=== PATIENT | female | born 1950 | race Caucasian/White ===

== ENCOUNTER 2021-04-15 00:52 | Inpatient (IN) | payer MEDICARE, OTHER ==
[2021-04-15] MEDS ORDERED: Ondansetron PF 4 MG/2 ML Vial ONE ×3 (01:38→08:12)
[2021-04-15] MEDS ORDERED: Morphine 4 MG/ML VIAL ONE ×2 (01:38→08:11)
[2021-04-15] MEDS ORDERED: Diltiazem 125 MG/25 ML ONE (02:12)
[2021-04-15] MEDS ORDERED: Ondansetron PF 4 MG/2 ML Vial IVP PRN (05:51)
[2021-04-15] MEDS ORDERED: Acetaminophen 325 MG TAB PO PRN (05:51)
[2021-04-15 06:18] LABS: #Basophils 0.1 thou/uL (0.0-0.2); #Eosinphils 0.1 thou/uL (0.0-0.7); #Lymphocytes 1.3 thou/uL (1.20-3.40); #Monocytes 1.2 thou/uL (0.11-0.59); #Neutrophils 14.3 thou/uL (1.40-6.50); %Basophils 0.3 % (0.0-1.0); %Eosinophils 0.4 % (0.0-10.0); %Lymphocytes 7.8 % (21.0-51.0); %Monocytes 7.1 % (0.0-10.0); %Neutrophils 84.4 % (42.0-75.0); Hemoglobin 12.3 g/dL (12.0-16.0); Mean Corpuscular HGB CONC 32.1 g/dL (32.0-36.0); Mean Corpuscular Volume 96.6 fL (78.0-98.0); Mean Platelet Volume 8.3 fL (7.4-10.4); Platelet Count 213 thou/uL (130-400); RBC Distribution Width 11.7 % (11.5-14.5); Red Blood Cell (RBC) Count 3.96 mill/uL (4.20-5.40); White Blood Cell (WBC) Count 16.9 thou/uL (4.8-10.8)
[2021-04-15 06:30] LABS: Anion Gap 13 mmol/L (10-20); BUN (Urea Nitrogen) 21 mg/dL (9.8-20.1); Calc. Creatinine Clearance 0 mL/min (70-130); Calcium 9.2 mg/dL (7.8-10.44); Carbon Dioxide 32 mmol/L (23-31); Chloride 97 mmol/L (98-107); Glucose 150 mg/dL (83-110); Potassium 3.8 mmol/L (3.5-5.1); Sodium 138 mmol/L (136-145)
[2021-04-15 07:11] LABS: SARS-CoV-2 NAA Rapid Test Not Detected (NotDetected)
[2021-04-15 07:27] VITALS: BMI 32.3
[2021-04-15] MEDS ORDERED: Morphine 4 MG/ML VIAL SLOW IVP PRN (08:10)
[2021-04-15] MEDS: Ampicillin/Sulbactam 3 GM in Sodium Chloride 0.9% 100 ML IVPB SCH ×3 (08:16→21:13)
[2021-04-15] MEDS: Morphine 2 MG/ML VIAL SLOW IVP PRN (14:13)
[2021-04-15] MEDS ORDERED: Morphine 2 MG/ML VIAL ONE (14:15)
[2021-04-15] MEDS ORDERED: Albuterol Sulfate 2.5 mg/0.5 ml Neb ONE (14:23)
[2021-04-15] MEDS ORDERED: Chlorhexidine Gluconate 15 ML UDCUP SSP ONE (16:49)
[2021-04-15] MEDS ORDERED: Lidocaine 1% w/Epinephrine 1:100K 20 ML VIAL ONE (16:49)
[2021-04-15] MEDS ORDERED: Fentanyl 100 MCG/2 ML VIAL ONE ×3 (17:02→18:48)
[2021-04-15] MEDS ORDERED: Iothalamate Meglumine 60% 50 ML VIAL FS ONE (17:06)
[2021-04-15] MEDS ORDERED: Lidocaine 1% PF 5 ML VIAL ONE (17:15)
[2021-04-15] MEDS ORDERED: Succinylcholine 200 MG/10 ml SYRINGE FS ONE (17:15)
[2021-04-15] MEDS ORDERED: Esmolol 100 MG/10 ML VIAL ONE (17:15)
[2021-04-15] MEDS ORDERED: Rocuronium Bromide 10 MG/ML (10ML VIAL) ONE (17:15)
[2021-04-15] MEDS ORDERED: Dexamethasone 20 MG/5 ML VIAL ONE (17:15)
[2021-04-15] MEDS ORDERED: PROPOFOL 200 MG/20 ML VIAL ONE (17:15)
[2021-04-15] MEDS ORDERED: SUGAMMADEX SODIUM 200 MG/2 ML VIAL ONE (17:54)
[2021-04-15] MEDS ORDERED: Diltiazem 125 MG in Sodium Chloride 0.9% 100 ML IVPB SCH (19:15)
[2021-04-15] MEDS: HYDROcodone/Acetaminophen 5/325 mg Tablet PO PRN (20:36)
[2021-04-16] MEDS: Ampicillin/Sulbactam 3 GM in Sodium Chloride 0.9% 100 ML IVPB SCH ×4 (02:23→20:55)
[2021-04-16 03:30] LABS: #Lymphocytes 0.6 thou/uL (1.20-3.40); #Monocytes 0.2 thou/uL (0.11-0.59); #Neutrophils 13.3 thou/uL (1.40-6.50); %Eosinophils 0.2 % (0.0-10.0); %Lymphocytes 4.3 % (21.0-51.0); %Monocytes 1.6 % (0.0-10.0); %Neutrophils 93.9 % (42.0-75.0); Hemoglobin 12.3 g/dL (12.0-16.0); Mean Corpuscular Hemoglobin 32.6 pg (27.0-31.0); Mean Corpuscular Volume 95.9 fL (78.0-98.0); Mean Platelet Volume 8.4 fL (7.4-10.4); Platelet Count 205 thou/uL (130-400); RBC Distribution Width 11.5 % (11.5-14.5); Red Blood Cell (RBC) Count 3.77 mill/uL (4.20-5.40); White Blood Cell (WBC) Count 14.2 thou/uL (4.8-10.8)
[2021-04-16] MEDS: HYDROcodone/Acetaminophen 5/325 mg Tablet PO PRN ×4 (03:30→20:54)
[2021-04-16 03:48] LABS: Anion Gap 13 mmol/L (10-20); BUN (Urea Nitrogen) 14 mg/dL (9.8-20.1); Calc. Creatinine Clearance 76 mL/min (70-130); Calcium 8.9 mg/dL (7.8-10.44); Carbon Dioxide 31 mmol/L (23-31); Chloride 97 mmol/L (98-107); Glucose 229 mg/dL (83-110); Potassium 3.2 mmol/L (3.5-5.1); Sodium 138 mmol/L (136-145)
[2021-04-16] MEDS: Niacin 500 MG TAB PO SCH (10:57)
[2021-04-16] MEDS: Methimazole 10 MG TAB PO SCH (10:57)
[2021-04-16] MEDS ORDERED: Furosemide 20 MG TAB PO SCH (11:15)
[2021-04-16] MEDS ORDERED: Digoxin 0.125 MG TAB PO SCH (11:15)
[2021-04-16] MEDS ORDERED: Metoprolol Tartrate 100 MG TAB PO SCH (11:15)
[2021-04-16] MEDS: Atorvastatin Calcium 20 MG TAB PO SCH (20:55)
[2021-04-16] MEDS: Enoxaparin Sodium 40 MG/0.4 ML SYRINGE SC SCH (20:55)
[2021-04-16] MEDS ORDERED: Metoprolol Tartrate 50 MG TAB PO SCH (21:00)
[2021-04-17] MEDS: Ampicillin/Sulbactam 3 GM in Sodium Chloride 0.9% 100 ML IVPB SCH ×4 (02:29→20:03)
[2021-04-17 03:33] LABS: #Eosinphils 0.1 thou/uL (0.0-0.7); #Lymphocytes 1.6 thou/uL (1.20-3.40); #Monocytes 0.8 thou/uL (0.11-0.59); #Neutrophils 15.7 thou/uL (1.40-6.50); %Basophils 0.1 % (0.0-1.0); %Eosinophils 0.4 % (0.0-10.0); %Lymphocytes 8.5 % (21.0-51.0); %Monocytes 4.6 % (0.0-10.0); %Neutrophils 86.4 % (42.0-75.0); Hemoglobin 12.8 g/dL (12.0-16.0); Mean Corpuscular HGB CONC 33.4 g/dL (32.0-36.0); Mean Corpuscular Hemoglobin 32.6 pg (27.0-31.0); Mean Corpuscular Volume 97.7 fL (78.0-98.0); Platelet Count 253 thou/uL (130-400); RBC Distribution Width 11.5 % (11.5-14.5); Red Blood Cell (RBC) Count 3.92 mill/uL (4.20-5.40); White Blood Cell (WBC) Count 18.2 thou/uL (4.8-10.8)
[2021-04-17 04:03] LABS: Anion Gap 13 mmol/L (10-20); BUN (Urea Nitrogen) 18 mg/dL (9.8-20.1); Calc. Creatinine Clearance 86 mL/min (70-130); Calcium 8.7 mg/dL (7.8-10.44); Carbon Dioxide 30 mmol/L (23-31); Chloride 99 mmol/L (98-107); Glucose 170 mg/dL (83-110); Magnesium 2.1 mg/dL (1.6-2.6); Potassium 3.7 mmol/L (3.5-5.1); Sodium 138 mmol/L (136-145)
[2021-04-17] MEDS: HYDROcodone/Acetaminophen 5/325 mg Tablet PO PRN ×3 (04:24→19:47)
[2021-04-17] MEDS: Niacin 500 MG TAB PO SCH (08:09)
[2021-04-17] MEDS: Furosemide 20 MG TAB PO SCH (08:09)
[2021-04-17] MEDS: Methimazole 10 MG TAB PO SCH ×2 (08:09→08:14)
[2021-04-17] MEDS ORDERED: Metoprolol Tartrate 100 MG TAB PO SCH (09:00)
[2021-04-17] MEDS ORDERED: Digoxin 0.125 MG TAB PO SCH (09:00)
[2021-04-17] MEDS ORDERED: Loratadine 10 MG TAB PO PRN (10:08)
[2021-04-17] MEDS ORDERED: Cepastat Lozenges 1 LOZ PO PRN (10:08)
[2021-04-17] MEDS ORDERED: Calcium Carbonate 500 MG ChewTAB PO PRN (10:08)
[2021-04-17] MEDS ORDERED: Temazepam 15 MG CAP PO PRN (10:08)
[2021-04-17] MEDS ORDERED: Labetalol HCl 100 MG/20 ML VIAL SLOW IVP PRN (10:08)
[2021-04-17] MEDS ORDERED: Senokot S 8.6-50 MG TAB PO PRN (10:08)
[2021-04-17] MEDS ORDERED: GUAIFENESIN SF SOLN 200 MG/10 ML UDCUP PO PRN (10:08)
[2021-04-17] MEDS ORDERED: Bisacodyl 5 MG TAB PO PRN (10:08)
[2021-04-17] MEDS ORDERED: Loperamide HCl 2 MG CAP PO PRN (10:08)
[2021-04-17] MEDS ORDERED: Sodium Chloride 0.65% Nasal 44 ML BOT EA NARE PRN (10:08)
[2021-04-17] MEDS ORDERED: Metoclopramide HCl 10 MG/2 ML VIAL IVP PRN (10:08)
[2021-04-17] MEDS: Metoprolol Tartrate 100 MG TAB PO SCH (20:03)
[2021-04-17] MEDS: Atorvastatin Calcium 20 MG TAB PO SCH (20:05)
[2021-04-17] MEDS: Enoxaparin Sodium 40 MG/0.4 ML SYRINGE SC SCH (20:06)
[2021-04-17] MEDS: Morphine 2 MG/ML VIAL SLOW IVP PRN (23:41)
[2021-04-18] MEDS: Ampicillin/Sulbactam 3 GM in Sodium Chloride 0.9% 100 ML IVPB SCH (01:46)
[2021-04-18 04:57] LABS: Hemoglobin 14.2 g/dL (12.0-16.0); Mean Corpuscular HGB CONC 32.9 g/dL (32.0-36.0); Mean Corpuscular Hemoglobin 32.2 pg (27.0-31.0); Mean Corpuscular Volume 97.7 fL (78.0-98.0); Platelet Count 337 thou/uL (130-400); RBC Distribution Width 11.6 % (11.5-14.5); Red Blood Cell (RBC) Count 4.42 mill/uL (4.20-5.40); White Blood Cell (WBC) Count 19.7 thou/uL (4.8-10.8)
[2021-04-18 05:26] LABS: Anion Gap 15 mmol/L (10-20); BUN (Urea Nitrogen) 20 mg/dL (9.8-20.1); Calc. Creatinine Clearance 83 mL/min (70-130); Calcium 8.5 mg/dL (7.8-10.44); Carbon Dioxide 29 mmol/L (23-31); Chloride 100 mmol/L (98-107); Glucose 124 mg/dL (83-110); Magnesium 1.9 mg/dL (1.6-2.6); Potassium 3.8 mmol/L (3.5-5.1); Sodium 140 mmol/L (136-145)
[2021-04-18 05:27] LABS: Digoxin Less than 0.15 ng/mL (0.8-2.0)
[2021-04-18] MEDS: HYDROcodone/Acetaminophen 5/325 mg Tablet PO PRN ×4 (05:39→21:25)
[2021-04-18 05:48] LABS: Band 16 % (5-11); Lymphocytes 25 % (21-51); MDiff Complete? YES; Monocytes 4 % (0-10); Neutrophil 55 % (42-75)
[2021-04-18] MEDS: Metoprolol Tartrate 100 MG TAB PO SCH ×2 (09:40→20:59)
[2021-04-18] MEDS: Digoxin 0.125 MG TAB PO SCH (09:40)
[2021-04-18] MEDS: Piperacillin/Tazobactam 3.375 GM in Sodium Chloride 0.9% 100 ML IVPB SCH ×3 (09:40→20:59)
[2021-04-18] MEDS: Niacin 500 MG TAB PO SCH (09:40)
[2021-04-18] MEDS: Saccharomyces boulardii 250 MG CAP PO SCH (09:40)
[2021-04-18] MEDS: Furosemide 20 MG TAB PO SCH (09:40)
[2021-04-18] MEDS: Methimazole 10 MG TAB PO SCH (09:40)
[2021-04-18] MEDS: Morphine 2 MG/ML VIAL SLOW IVP PRN (11:59)
[2021-04-18] MEDS ORDERED: Loratadine 10 MG TAB PO PRN (18:08)
[2021-04-18] MEDS: Atorvastatin Calcium 20 MG TAB PO SCH (20:59)
[2021-04-18] MEDS: Chlorhexidine Gluconate 15 ML UDCUP SSP SCH (20:59)
[2021-04-18] MEDS: Enoxaparin Sodium 40 MG/0.4 ML SYRINGE SC SCH (20:59)
[2021-04-19] MEDS: Piperacillin/Tazobactam 3.375 GM in Sodium Chloride 0.9% 100 ML IVPB SCH ×5 (02:23→23:35)
[2021-04-19] MEDS: HYDROcodone/Acetaminophen 5/325 mg Tablet PO PRN ×4 (02:26→23:35)
[2021-04-19 04:52] LABS: #Basophils 0.1 thou/uL (0.0-0.2); #Eosinphils 0.7 thou/uL (0.0-0.7); #Lymphocytes 2.6 thou/uL (1.20-3.40); #Monocytes 1.1 thou/uL (0.11-0.59); #Neutrophils 9.2 thou/uL (1.40-6.50); %Basophils 0.5 % (0.0-1.0); %Eosinophils 4.8 % (0.0-10.0); %Lymphocytes 19.2 % (21.0-51.0); %Neutrophils 67.4 % (42.0-75.0); Hemoglobin 13.7 g/dL (12.0-16.0); Mean Corpuscular HGB CONC 34.3 g/dL (32.0-36.0); Mean Corpuscular Hemoglobin 33.1 pg (27.0-31.0); Mean Corpuscular Volume 96.5 fL (78.0-98.0); Mean Platelet Volume 7.5 fL (7.4-10.4); Platelet Count 281 thou/uL (130-400); RBC Distribution Width 11.8 % (11.5-14.5); Red Blood Cell (RBC) Count 4.14 mill/uL (4.20-5.40); White Blood Cell (WBC) Count 13.6 thou/uL (4.8-10.8)
[2021-04-19 05:25] LABS: Anion Gap 10 mmol/L (10-20); BUN (Urea Nitrogen) 15 mg/dL (9.8-20.1); Calc. Creatinine Clearance 83 mL/min (70-130); Calcium 8.3 mg/dL (7.8-10.44); Carbon Dioxide 30 mmol/L (23-31); Chloride 102 mmol/L (98-107); Glucose 137 mg/dL (83-110); Magnesium 1.8 mg/dL (1.6-2.6); Potassium 3.2 mmol/L (3.5-5.1); Sodium 139 mmol/L (136-145)
[2021-04-19] MEDS: Mometasone 200 MCG/Formoterol 5 MCG 120 PUFF INHALER INH SCH (07:00)
[2021-04-19] MEDS: Metoprolol Tartrate 100 MG TAB PO SCH ×2 (08:57→19:51)
[2021-04-19] MEDS: Montelukast Sodium 10 mg Tablet PO SCH (08:57)
[2021-04-19] MEDS: Saccharomyces boulardii 250 MG CAP PO SCH (08:57)
[2021-04-19] MEDS: Methimazole 10 MG TAB PO SCH (08:57)
[2021-04-19] MEDS: Chlorhexidine Gluconate 15 ML UDCUP SSP SCH ×2 (08:57→19:52)
[2021-04-19] MEDS: Niacin 500 MG TAB PO SCH (09:01)
[2021-04-19] MEDS ORDERED: Potassium Chloride 20 MEQ TAB PO SCH (11:00)
[2021-04-19] MEDS: Morphine 2 MG/ML VIAL SLOW IVP PRN (12:18)
[2021-04-19] MEDS ORDERED: Furosemide 20 MG/2 ML VIAL SLOW IVP SCH (15:30)
[2021-04-19] MEDS: Atorvastatin Calcium 20 MG TAB PO SCH (19:51)
[2021-04-19] MEDS: Enoxaparin Sodium 40 MG/0.4 ML SYRINGE SC SCH (19:52)
[2021-04-20 04:43] LABS: #Basophils 0.1 thou/uL (0.0-0.2); #Eosinphils 1.4 thou/uL (0.0-0.7); #Lymphocytes 3.3 thou/uL (1.20-3.40); #Monocytes 0.8 thou/uL (0.11-0.59); #Neutrophils 7.7 thou/uL (1.40-6.50); %Basophils 0.6 % (0.0-1.0); %Eosinophils 10.2 % (0.0-10.0); %Lymphocytes 25.2 % (21.0-51.0); %Monocytes 5.9 % (0.0-10.0); %Neutrophils 58.1 % (42.0-75.0); Hemoglobin 13.8 g/dL (12.0-16.0); Mean Corpuscular HGB CONC 34.2 g/dL (32.0-36.0); Mean Corpuscular Volume 96.5 fL (78.0-98.0); Mean Platelet Volume 7.6 fL (7.4-10.4); Platelet Count 296 thou/uL (130-400); RBC Distribution Width 11.8 % (11.5-14.5); Red Blood Cell (RBC) Count 4.17 mill/uL (4.20-5.40); White Blood Cell (WBC) Count 13.2 thou/uL (4.8-10.8)
[2021-04-20] MEDS: Piperacillin/Tazobactam 3.375 GM in Sodium Chloride 0.9% 100 ML IVPB SCH ×2 (05:00→12:40)
[2021-04-20 05:03] LABS: Anion Gap 13 mmol/L (10-20); BUN (Urea Nitrogen) 13 mg/dL (9.8-20.1); Calc. Creatinine Clearance 82 mL/min (70-130); Calcium 8.8 mg/dL (7.8-10.44); Carbon Dioxide 27 mmol/L (23-31); Chloride 103 mmol/L (98-107); Glucose 117 mg/dL (83-110); Potassium 3.5 mmol/L (3.5-5.1); Sodium 139 mmol/L (136-145)
[2021-04-20] MEDS: HYDROcodone/Acetaminophen 5/325 mg Tablet PO PRN ×2 (05:06→12:39)
[2021-04-20] MEDS: Mometasone 200 MCG/Formoterol 5 MCG 120 PUFF INHALER INH SCH (07:26)
[2021-04-20] MEDS: Digoxin 0.125 MG TAB PO SCH (09:38)
[2021-04-20] MEDS: Methimazole 10 MG TAB PO SCH (09:38)
[2021-04-20] MEDS: Niacin 500 MG TAB PO SCH (09:38)
[2021-04-20] MEDS: Saccharomyces boulardii 250 MG CAP PO SCH (09:38)
[2021-04-20] MEDS: Montelukast Sodium 10 mg Tablet PO SCH (09:38)
[2021-04-20] MEDS: Metoprolol Tartrate 100 MG TAB PO SCH (09:39)
[2021-04-20] MEDS: Chlorhexidine Gluconate 15 ML UDCUP SSP SCH (09:41)
[2021-04-20 13:46] VITALS: BP 178/81; TEMP 97.6
== END 2021-04-20 16:00 | disposition home or self-care (01) | DRG 853 ==
LOC: ERS 00:52 → ERHOLD 03:00 → IMCU/EMU 15:44 → 2NO 04-17 18:16
PROVIDERS: ADMIT Internal Medicine; ATTEND Internal Medicine
PROC: 0J910ZZ Drainage of Face Subcutaneous Tissue and Fascia, Open Approach (ICD-10-PCS; principal; 2021-04-15)
PROC: 0CDWXZ0 Extraction of Upper Tooth, Single, External Approach (ICD-10-PCS; 2021-04-15)
PROC: 0JB40ZZ Excision of Right Neck Subcutaneous Tissue and Fascia, Open Approach (ICD-10-PCS; 2021-04-15)
DX: A41.9 Sepsis, unspecified organism (principal); J69.0 Pneumonitis due to inhalation of food and vomit; M72.6 Necrotizing fasciitis; J96.01 Acute respiratory failure with hypoxia; K12.2 Cellulitis and abscess of mouth; I42.9 Cardiomyopathy, unspecified; L02.01 Cutaneous abscess of face; N17.9 Acute kidney failure, unspecified; I47.2 Ventricular tachycardia; Z20.822 Contact with and (suspected) exposure to COVID-19; E87.6 Hypokalemia; I50.9 Heart failure, unspecified; I11.0 Hypertensive heart disease with heart failure; J43.2 Centrilobular emphysema; E78.5 Hyperlipidemia, unspecified; K21.9 Gastro-esophageal reflux disease without esophagitis; E05.90 Thyrotoxicosis, unspecified without thyrotoxic crisis or storm; I48.0 Paroxysmal atrial fibrillation; K04.7 Periapical abscess without sinus; M81.0 Age-related osteoporosis without current pathological fracture; Z87.891 Personal history of nicotine dependence; Z79.899 Other long term (current) drug therapy; Z79.51 Long term (current) use of inhaled steroids; Z80.1 Family history of malignant neoplasm of trachea, bronchus and lung; Z82.49 Family history of ischemic heart disease and other diseases of the circulatory system
CPT/HCPCS: 36415; 71045; 80048; 80162; 83735; 83880; 84439; 84443; 85025; 85379; 87040; 87070; 87205; 93005; 94640; 96365; 96366; 96375; 96376; J0295; J1100; J1650; J1940; J2270; J2405; J2543; J2704; J3010; J3475; J3490; J7611; J7620; Q9961; U0002; U0005